=== PATIENT | male | born 1975 | race Caucasian/White ===

== ENCOUNTER 2017-06-02 01:47 | Emergency (ER) | payer MEDICARE, MEDICAID ==
[2017-06-02 02:27] LABS: BASO # 0.1 (0.02-0.10); EOS # 0.3 (0.04-0.40); HEMATOCRIT 49.3 % (42.0-52.0); HEMOGLOBIN 16.9 g/dL (13.5-18.0); LYMPH# 2.3 (1.50-4.00); MEAN CELL VOLUME 95 fl (78-100); MEAN CORPUSCULAR HEMOGLOBIN 33 pg (27-31); MEAN CORPUSCULAR HGB CONC 34 g/dL (33-37); MONO # 0.8 (0.20-0.80); PLATELET COUNT 237 K/mm3 (130-400); RED CELL DISTRIBUTION WIDTH 13.5 % (11.5-14.5); WHITE BLOOD COUNT 13.1 K/mm3 (4.8-10.8)
[2017-06-02 02:37] LABS: NEU # 9.7 (1.40-6.50)
[2017-06-02 02:38] LABS: ALBUMIN 4.4 g/dL (3.5-5.0); BUN/CREATININE RATIO 12.6 (6.0-26.0); CALCIUM 9.3 mg/dL (8.4-10.2); POTASSIUM 3.7 mmol/L (3.6-5.0); TOTAL BILIRUBIN 0.3 mg/dL (0.2-1.3); TOTAL PROTEIN 7.8 g/dL (6.3-8.2)
[2017-06-02 10:33] VITALS: BP 115/64
== END 2017-06-02 10:53 | disposition home or self-care (01) ==
LOC: ED 01:47
PROVIDERS: Nurse Practitioner Primary Care
DX: F17.200 Nicotine dependence, unspecified, uncomplicated (principal); F10.220 Alcohol dependence with intoxication, uncomplicated; Y90.7 Blood alcohol level of 200-239 mg/100 ml; M25.572 Pain in left ankle and joints of left foot
CPT/HCPCS: J7030